=== PATIENT | female | born 1955 | race Caucasian/White ===

== ENCOUNTER → 2019-05-30 | Outpatient (CLI) | payer OTHER ==
[2019-05-30 09:41] LABS: CREATININE 0.6 mg/dL (0.6-1.0)
== END ==
LOC: CAT 08:02
PROVIDERS: Family Medicine
DX: R90.82 White matter disease, unspecified (principal); E78.2 Mixed hyperlipidemia; G45.9 Transient cerebral ischemic attack, unspecified; M50.30 Other cervical disc degeneration, unspecified cervical region; Z90.49 Acquired absence of other specified parts of digestive tract